=== PATIENT | female | born 2005 | race Hispanic/Latino ===

== ENCOUNTER 2024-08-16 17:12 | Emergency (ER) | payer SELFPAY ==
[2024-08-16 17:13] VITALS: BP 107/71; PULSE 88; RESP 16; TEMP 36.5; O2SAT 99; BMI 21.4
[2024-08-16 21:00] VITALS: BP 122/68; PULSE 81; RESP 16; O2SAT 98
--- NOTE | 2024-08-16 21:41 | ED.VIS.GI ---
HPI HPI - GI History of Present Illness Chief Complaint: Abd Pain Informant: patient Limited: language barrier ([employer] service was used) Abdominal Pain/Flank Pain Onset: Weeks (1) Context: Sudden Onset Timing: Continuous Quality: - (Strong) Location: Epigastric Worsened by: Nothing Relieved by: Nothing Nausea/Vomiting/Emesis GI Symptom: Positive for Nausea and Vomiting Onset: Weeks (1) Quality: Positive for Nonbilious; Negative for Blood streaks, Coffee ground or Hematemesis Diarrhea/Melena/Hematochezia GI Symptom: Negative for Diarrhea, Melena or Hematochezia Associated Symptoms Associated Symptoms: Negative for Dysuria, Frequency or Hematuria Narrative Narrative: Patient presents with abdominal pain, nausea, and vomiting that has been getting worse over the past week. Patient states her pain is mainly over the epigastric area. Patient describes it as a strong pain. Patient states it comes and goes. Patient states nothing makes it better and nothing makes it worse. Patient denies any hematemesis or coffee-ground emesis. Patient states she has some intermittent dizziness and occasional headaches. Patient denies any diarrhea, melena, or hematochezia. Patient denies any dysuria, hematuria, or frequency. PFSH PFSH Medical History no medical history no medical history Allergy/AdvReac Type Severity Reaction Status Date / Time No Known Allergies Allergy Verified 08/16/24 17:17 Surgical History no surgical history no surgical history Social History Smoking Status: Never smoker ROS ROS ED Constitutional Constitutional ED: Denies chills or fever(s) Eyes Eyes: Denies blurry vision or change in vision ENT ENT ED: Denies rhinorrhea or sore throat Cardiovascular Cardiovascular: Denies chest pain or palpitations Respiratory/Chest Respiratory/Chest: Denies cough or dyspnea Gastrointestinal Gastrointestinal: Reports abdominal pain, nausea and vomiting; Denies diarrhea or melena Genitourinary Genitourinary ED: Denies dysuria or hematuria Musculoskeletal Musculoskeletal: Reports back pain and neck pain Integumentary Denies abscess or rash Neurologic Neurologic: Reports headache(s); Denies weakness Allergic/Immunologic Allergic/Immunologic ED: Denies mouth swelling or urticaria EXAM Physical Exam Const Vital Signs: 08/16/24 17:13 08/16/24 21:00 08/16/24 23:00 Temperature 97.7 F L Temperature Source Oral Pulse Rate 88 81 77 Respiratory Rate 16 16 16 Blood Pressure 107/71 122/68 H 128/77 H Blood Pressure Mean 83 86 94 Pulse Ox 99 98 98 Oxygen Delivery Method Room Air Room Air Room Air Positive well nourished and well developed General Appearance ED: well developed and NAD HEENT Reports moist mucous membranes Neck supple and no JVD Resp normal respiratory effort and clear to auscultation bilaterally Cardio regular rate and regular rhythm GI non-distended Palpation: soft and tender epigastric, LUQ and RUQ; Negative for guarding or rebound tenderness present Extremity General Extremety ED: Negative for edema or tenderness General Extremity: Negative for edema Neuro CN's II-XII intact bilaterally, moves all extremities and no sensory deficits noted Sensorium / Orientation: alert Motor Exam: strength 5/5 throughout Psych mental status grossly normal and thought process normal MDM MDM MDM Narrative Medical decision making narrative: Differential diagnosis includes gastritis, gastroenteritis, peptic ulcer disease, duodenal ulcer, cholecystitis, cholelithiasis, pancreatitis, , urinary tract infection, and pyelonephritis. CBC will be obtained to assess for leukocytosis and anemia. Comprehensive metabolic profile will be obtained to assess for hepatic function, renal function, and electrolyte abnormality. Lipase will be obtained to assess for pancreatitis. PT with INR and PTT will be obtained to assess for coagulopathy. Serum hCG will be obtained to assess for . Lab Data Attestation: I reviewed the patient's lab results. Lab results narrative: CBC was reviewed and was within normal limits. Comprehensive metabolic profile was reviewed and was within normal limits. PT with INR and PTT were reviewed and were essentially within normal limits. Lipase was reviewed and was normal at 27. Serum hCG was reviewed and was positive. Quantitative hCG was reviewed and was 89,657. Labs: Laboratory Results - last 24 hr 08/16/24 21:58 WBC 10.9 RBC 4.41 Hgb 12.2 Hct 37.6 MCV 85.3 MCH 27.7 MCHC 32.4 RDW Std Deviation 40.4 RDW Coeff of Melani 13.1 Plt Count 314 MPV 10.4 Immature Gran % (Auto) 0.300 Neut % (Auto) 59.5 Lymph % (Auto) 32.3 Donley % (Auto) 5.4 Eos % (Auto) 2.2 Baso % (Auto) 0.3 Absolute Neuts (auto) 6.5 Absolute Lymphs (auto) 3.51 Nucleated RBC % 0 PT 14.9 INR 1.2 APTT 26.5 Sodium 136 Potassium 3.9 Chloride 105 Carbon Dioxide 24.0 Anion Gap 7 BUN 5 L Creatinine 0.45 L Estim Creat Clear Calc 163.59 Est GFR (MDRD) Af Amer 227 Est GFR (MDRD) Non-Af 188 BUN/Creatinine Ratio 11.2 Glucose 86 Calcium 9.2 Total Bilirubin 0.30 AST 25 ALT 34 Alkaline Phosphatase 66 Total Protein 7.6 Albumin 3.7 Globulin 3.9 Albumin/Globulin Ratio 0.9 Lipase 27 HCG, Quant 60558 H Serum , Qual POSITIVE Additional Tests and Interventions Additional Tests or Interventions: Because of the positive test, quantitative hCG was obtained. Treatment and Re-Evaluation :: Patient was given a GI cocktail. Patient was advised of her findings. Patient was instructed to start using [id number] vitamins. Patient was given a referral for [facility]. Patient was instructed to follow-up with her primary care physician and [facility] in 5 to 7 days. Patient was instructed to return if worse in any way. Patient understood and was agreeable with the plan. All questions were answered. Discharge Plan Triage Chief Complaint: Abd Pain Other Complaint: Headache Nausea/Vomiting ED Provider: Brady Bernstein Dx/Rx/DC Orders Clinical Impression: , Epigastric abdominal pain Instructions: ED , ED Epigastric Pain Uncertain Cause Referrals: Abbie Bryant MD [Med Staff - Active Staff] - 3-5 Days Print Language: Malagasy Disposition Disposition: Home, Self Care
[2024-08-16 22:11] LABS: Absolute Lymphocyte Count 3.51 X10^3/uL (0.83-4.51); Absolute Neutrophil Count 6.5 X10^3/uL (2.0-7.7); Basophil# 0.03 X10^3/uL; Basophil% 0.3 % (0-1); Eosinophil# 0.24 X10^3/uL; Eosinophils% 2.2 % (0-5); Hematocrit 37.6 % (37-47); Hemoglobin 12.2 g/dL (12.0-15.0); Lymphocyte # 3.51 X10^3/ul (0.83-4.51); Lymphocyte % 32.3 % (19-41); Mean Corp Hgb Conc 32.4 g/dL (32-36); Mean Corpuscular Hgb 27.7 pg (27.0-32.0); Mean Corpuscular Volume 85.3 fL (81-99); Mean Platelet Vol. 10.4 fl (6.2-12.0); Monocyte# 0.59 X10^3/uL; Monocyte% 5.4 % (0-10); NRBC Flagged by Analyzer 0 % (0-5); Neutrophil # 6.46 X10^3/uL (2.7-7.7); Neutrophil % 59.5 % (47-70); Platelet Count 314 K/mm3 (150-450); RBC Distribution Width CV 13.1 % (11.6-14.6); RBC Distribution Width SD 40.4 fl (35.1-43.9); Red Blood Count 4.41 M/mm3 (4.2-5.4); White Blood Count 10.9 K/mm3 (4.4-11.0)
[2024-08-16 22:19] LABS: Internal QC Validated? YES +Cl - CLEAR BKGD; Record Kit Lot#, Serum Preg. 772476
[2024-08-16 22:22] LABS: Pregnancy, Serum, hCG Quali. POSITIVE Negative
[2024-08-16 22:24] LABS: International Normalized Ratio 1.2; Partial Thromboplast Time 26.5 Seconds (24.1-36.2); Prothrombin Time (Protime)PT. 14.9 SECONDS (11.7-14.9)
[2024-08-16 22:25] LABS: Lipase 27 U/L (13-75)
[2024-08-16 22:34] LABS: ALB/GLOB Ratio 0.9 RATIO (0.9-2.4); AST(SGOT) 25 U/L (15-37); Alanine Aminotransfer ALT/SGPT 34 U/L (13-56); Albumin, Serum 3.7 g/dL (3.2-5.0); Alkaline Phosphatase 66 U/L (45-117); Anion Gap 7 (5-15); BUN 5 mg/dL (7-18); BUN/Creat Ratio 11.2 RATIO (10-20); Calcium,Total 9.2 mg/dL (8.5-10.1); Chloride 105 mmol/L (98-107); Creatinine, Serum 0.45 mg/dL (0.55-1.02); EST Glomerular Filtration Rate 188 mL/min (>60); Est Glom Filt Rate - Afr Amer 227 mL/min (>60); Estimated Creatinine Clearance 163.59 ml/min; Globulin 3.9 g/dL (2.2-4.2); Glucose 86 mg/dL (74-106); Potassium 3.9 mmol/L (3.5-5.1); Protein, Total 7.6 g/dL (6.4-8.2); Sodium Level 136 mmol/L (136-145)
[2024-08-16 23:00] VITALS: BP 128/77; PULSE 77; RESP 16; O2SAT 98
[2024-08-16] MEDS: Mag Hydrox/Al Hydrox/Simeth 30 ML UDC PO (23:20)
[2024-08-16] MEDS: Lidocaine 2% Viscous15 ML UDC 15 ML PO (23:20)
[2024-08-16 23:42] LABS: hCG Titer Quant., Serum 89657 mIU/mL (1-3)
[2024-08-17 00:05] LABS: Mucous, Urine 0 SEEN /hpf (<or=2+); Red Blood Cells-Urine 0 SEEN /hpf (0-5); White Blood Cells 0 SEEN /hpf (0-5)
[2024-08-17 00:24] LABS: Color, Urine Yellow (Yellow); Glucose, Dipstick Normal (Normal); Leukocyte Esterase-Dipstick Negative /ul (Negative); Nitrite-Dipstick Negative (Negative); Occult Blood-Urine Negative /ul (Negative); Protein-Dipstick 15 mg/dl (Negative); Urine Bilirubin Dipstick Negative (Negative); Urine Clarity Clear (Clear); Urine Urobilinogen Normal (Normal)
[2024-08-17 00:30] LABS: Ketone-Dipstick 150 mg/dl (Negative)
[2024-08-17 00:33] LABS: Bacteria 3+ /hpf (None Seen); Squamous Epithelial Cells - UA 5-10 SEEN /hpf (5-10)
== END 2024-08-17 00:28 | disposition home or self-care (01) ==
PROVIDERS: Emergency Provider Emergency Medicine; Visit Provider Emergency Medicine
DX: O21.9 Vomiting of pregnancy, unspecified (principal); R10.13 Epigastric pain; O26.899 Other specified pregnancy related conditions, unspecified trimester; Z3A.00 Weeks of gestation of pregnancy not specified
CPT/HCPCS: 80053; 81001; 83690; 84702; 84703; 85025; 85610; 85730; 99283; A4216